=== PATIENT | female | born 1980 | race Caucasian/White ===

== ENCOUNTER 2016-12-06 18:32 | Emergency (ER) | payer SELFPAY ==
[~2016-12-06] VITALS: Ht 175.3 cm; Wt 68.0 kg
[2016-12-06 19:33] VITALS: BP 116/95
[2016-12-06 19:35] LABS: Basophils # (auto) 0 uL; Basophils % (auto) 0.3 % (0.0-2.0); Eosinophils # (auto) 0 uL; Eosinophils % (auto) 0.2 % (0.0-7.0); Hematocrit 39.1 % (36.0-46.0); Hemoglobin 12.8 g/dL (12.2-16.2); Lymphocytes # (auto) 1.5 uL; Mean Corpuscular Hemoglobin 28.3 pg (28.0-32.0); Mean Corpuscular Hgb Conc. 32.6 g/dL (32.0-36.0); Mean Corpuscular Volume 86.8 fL (80.0-100.0); Mean Platelet Volume 7.9 fL (7.4-10.4); Monocytes # (auto) 0.4 uL; Neutrophils # (auto) 6.8 uL; Neutrophils % (auto) 77.5 % (37.0-80.0); Platelet Count (auto) 305 10^3/uL (140-450); White Blood Cell 8.7 10^3/uL (4.4-10.8)
[2016-12-06 20:15] LABS: Alkaline Phosphatase 69 U/L (45-117); Anion Gap 9 (5-15); Aspartate Aminotransferase 12 U/L (15-37); BUN/Creatinine Ratio 8.5; Bilirubin, Total 0.3 mg/dL (0.2-1.0); Blood Urea Nitrogen 7 mg/dL (7-18); Calcium 9.3 mg/dL (8.5-10.1); Carbon Dioxide 28 mmol/L (21-32); Chloride 100 mmol/L (98-107); GFR African American 102 mL/min; GFR Non-African American 84 mL/min; Glucose 100 mg/dL (74-106); Magnesium 2.4 mg/dL (1.6-2.6); Potassium 4.2 mmol/L (3.5-5.1); Sodium 137 mmol/L (136-145); Total Protein 7.9 g/dL (6.4-8.2)
== END 2016-12-07 00:03 | disposition left against medical advice (07) ==
LOC: ER 18:49
DX: R55 Syncope and collapse (principal); Z53.21 Procedure and treatment not carried out due to patient leaving prior to being seen by health care provider
CPT/HCPCS: 36415; 80053; 83735; 84484; 85025

== ENCOUNTER 2018-09-18 22:37 | Emergency (ER) | payer MEDICAID, OTHER ==
[~2018-09-18] VITALS: Ht 170.2 cm; Wt 77.1 kg
[2018-09-19 00:24] LABS: Urine Bacteria MANY /hpf (None Seen); Urine Blood Negative /uL (Negative); Urine Mucus FEW (None Seen); Urine Specific Gravity 1.024 (1.001-1.035); Urine WBC 17 /hpf (0 - 5)
[2018-09-19 00:29] LABS: Alcohol, Urine < 3.0 mg/dL (0-5); Amphetamine Screen, Urine NEGATIVE (NEGATIVE); Barbiturate Scree,Urine NEGATIVE (NEGATIVE); Benzodiazephine Screen, Urine POSITIVE (NEGATIVE); Cannabinoid Screen, Urine NEGATIVE (NEGATIVE); Cocaine Screen, Urine NEGATIVE (NEGATIVE); Opiate Scree,Urine POSITIVE (NEGATIVE); Phencyclidine Screen, Urine NEGATIVE (NEGATIVE)
[2018-09-19 03:00] VITALS: BP 132/80
== END 2018-09-19 03:36 | disposition home or self-care (01) ==
LOC: EDUNIT# 22:37 → ER 22:44
DX: T40.601A Poisoning by unspecified narcotics, accidental (unintentional), initial encounter (principal); R55 Syncope and collapse; N39.0 Urinary tract infection, site not specified; G35 Multiple sclerosis; Z90.49 Acquired absence of other specified parts of digestive tract; Y92.89 Other specified places as the place of occurrence of the external cause
CPT/HCPCS: 70450; 80307; 81001

== ENCOUNTER 2020-01-13 12:05 | Inpatient (IN) | payer MEDICAID ==
[~2020-01-13] VITALS: Ht 175.3 cm; Wt 97.5 kg
[2020-01-13 12:45] LABS: Basophils # (auto) 0 10 ^3/uL (0-0.2); Basophils % (auto) 0.7 % (0.0-2.0); Eosinophils # (auto) 0 10 ^3/uL (0-0.8); Eosinophils % (auto) 0.7 % (0.0-7.0); Hematocrit 38.4 % (36.0-46.0); Hemoglobin 12.5 g/dL (12.2-16.2); Lymphocytes # (auto) 1.5 10 ^3/uL (0.4-5.4); Lymphocytes % (auto) 22.7 % (10.0-50.0); Mean Corpuscular Hemoglobin 27.8 pg (28.0-32.0); Mean Corpuscular Hgb Conc. 32.5 g/dL (32.0-36.0); Mean Corpuscular Volume 85.5 fL (80.0-100.0); Monocytes # (auto) 0.5 10 ^3/uL (0-1.3); Monocytes % (auto) 7.3 % (0.0-12.0); Neutrophils # (auto) 4.6 10 ^3/uL (1.6-8.6); Neutrophils % (auto) 68.6 % (37.0-80.0); Nucleated Red Blood Cells % 0.1 %; Platelet Count (auto) 305 10^3/uL (140-450); Red Blood Cells 4.49 10^6/uL (4.0-5.20); Red Cell Distribution Width 15.3 % (11.8-14.3); White Blood Cell 6.8 10^3/uL (4.4-10.8)
[2020-01-13 12:59] LABS: Albumin 3.9 g/dL (3.4-5.0); Anion Gap 9 (5-15); Calcium 9.1 mg/dL (8.5-10.1); Carbon Dioxide 24 mmol/L (21-32); Chloride 105 mmol/L (98-107); Glucose 98 mg/dL (74-106); Potassium 3.7 mmol/L (3.5-5.1); Sodium 138 mmol/L (136-145)
[2020-01-13 13:05] LABS: Alanine Aminotransferase 39 U/L (13-56); Alkaline Phosphatase 66 U/L (45-117); Aspartate Aminotransferase 16 U/L (15-37); BUN/Creatinine Ratio 14.3; Bilirubin, Total 0.3 mg/dL (0.2-1.0); Blood Urea Nitrogen 13 mg/dL (7-18); GFR African American 89 mL/min; GFR Non-African American 74 mL/min; Total Protein 8.2 g/dL (6.4-8.2)
[2020-01-13] MEDS ORDERED: MORPHINE SULFATE 4 MG/ML SYR/VIAL IV ONE (14:15)
[2020-01-13] MEDS ORDERED: ONDANSETRON HCL 4 MG/2 ML VIAL IV ONE (14:15)
[2020-01-13] MEDS ORDERED: MORPHINE SULF INJ 2 MG/ML SYRINGE 1ML IV PRN (18:45)
[2020-01-13] MEDS ORDERED: NITROGLYCERIN 0.4 MG SL TAB SL PRN (18:45)
[2020-01-13] MEDS ORDERED: ONDANSETRON HCL 4 MG/2 ML VIAL IV PRN (18:45)
[2020-01-13] MEDS ORDERED: SUCRALFATE 1 GM/10 ML ORAL SUSP PO ONE (18:45)
[2020-01-13] MEDS: MORPHINE SULF INJ 2 MG/ML SYRINGE 1ML IV PRN (19:55)
[2020-01-13 20:05] VITALS: BP 122/85
--- NOTE | 2020-01-13 20:05 | NUR ---
Telemetry admit from [facility] admitted to Telemetry unit, SBAR not received. Patient oriented to Ro Londono,RN primary RN, unit, room, bed, and unit policies regarding patient care and visiting hours. Patient now on continuous telemetry monitoring, tele box #2 and telemetry reading on arrival to unit is NSR. Patient AAOx4, no S/S of distress or SOB noted. Weighed by bed scale and encouraged to call if they need something. All questions and concerns addressed, patient verbalized understanding. Bed in lowest locked position, side rails up x2, call light within reach. Will continue to monitor every hour and as needed.
[2020-01-13 22:00] VITALS: BP 122/85
[2020-01-13] MEDS: PANTOPRAZOLE 40 MG/10 ML VIAL INJ IV SCH (22:00)
[2020-01-14] MEDS: MORPHINE SULF INJ 2 MG/ML SYRINGE 1ML IV PRN ×3 (04:54→18:20)
[2020-01-14 05:00] VITALS: BP 115/70
[2020-01-14 08:00] VITALS: BP 114/68
[2020-01-14] MEDS: PANTOPRAZOLE 40 MG/10 ML VIAL INJ IV SCH ×2 (10:19→21:20)
--- NOTE | 2020-01-14 10:34 | NUR ---
PAGED DR WALLACE TO NOTIFY HIM THAT CT OF HEART CAN NOT BE DONE TODAY DUE TO LACK OF STAFF BUT IT WILL BE DONE TOMORROW.
[2020-01-14 11:09] LABS: Amphetamine Screen, Urine NEGATIVE (NEGATIVE); Barbiturate Scree,Urine NEGATIVE (NEGATIVE); Benzodiazephine Screen, Urine POSITIVE (NEGATIVE); Cannabinoid Screen, Urine POSITIVE (NEGATIVE); Cocaine Screen, Urine NEGATIVE (NEGATIVE); Opiate Scree,Urine POSITIVE (NEGATIVE); Phencyclidine Screen, Urine NEGATIVE (NEGATIVE)
[2020-01-14 11:21] LABS: Urine Bacteria NONE SEEN /hpf (None Seen); Urine Blood Negative /uL (Negative); Urine Mucus FEW (None Seen); Urine Specific Gravity 1.031 (1.001-1.035); Urine WBC 410 /hpf (0 - 5); Urine WBC Clumps PRESENT /hpf (None Seen)
[2020-01-14 12:00] VITALS: BP 109/83
[2020-01-14 17:00] VITALS: BP 113/69
[2020-01-14 18:19] LABS: Hemoglobin 12.9 g/dL (12.2-16.2)
--- NOTE | 2020-01-14 19:30 | NUR ---
Opening Shift Note Assumed care of patient, awake and alert. No S/S of distress/SOB or pain. Instructed on POC and to call for assist PRN, will continue to monitor for changes Q1hr and PRN.
[2020-01-14 22:10] VITALS: BP 113/73
--- NOTE | 2020-01-14 23:25 | NUR ---
Patient reported CP of 10 and SOB. VS taken showing BP of 141/87, HR 87, O2 sat of 93% RR at 20. CP protocol followed. Nitro given SL and 2nd dose given after 5 min without any relief. O2 by nasal cannula also given at 2L. Morphine also given.
--- NOTE | 2020-01-14 23:41 | NUR ---
After rechecking patient VS were BP 120/69, HR 82, O2 98% and RR at 18. Patient stated pain is dropping to a 7 and she feels relief. Will continue to monitor.
--- NOTE | 2020-01-15 01:00 | NUR ---
Patient rounding. Patient asleep and no signs of distress or pain. Will continue to monitor.
[2020-01-15 05:00] VITALS: BP 114/69
[2020-01-15 06:01] LABS: Basophils # (auto) 0 10 ^3/uL (0-0.2); Basophils % (auto) 0.5 % (0.0-2.0); Eosinophils # (auto) 0.2 10 ^3/uL (0-0.8); Eosinophils % (auto) 2.4 % (0.0-7.0); Hemoglobin 11.6 g/dL (12.2-16.2); Lymphocytes # (auto) 2.4 10 ^3/uL (0.4-5.4); Lymphocytes % (auto) 38.1 % (10.0-50.0); Mean Corpuscular Hemoglobin 28.6 pg (28.0-32.0); Mean Corpuscular Volume 86.4 fL (80.0-100.0); Monocytes # (auto) 0.6 10 ^3/uL (0-1.3); Monocytes % (auto) 9.3 % (0.0-12.0); Neutrophils # (auto) 3.2 10 ^3/uL (1.6-8.6); Neutrophils % (auto) 49.7 % (37.0-80.0); Nucleated Red Blood Cells % 0.2 %; Platelet Count (auto) 251 10^3/uL (140-450); Red Blood Cells 4.05 10^6/uL (4.0-5.20); Red Cell Distribution Width 14.9 % (11.8-14.3); White Blood Cell 6.4 10^3/uL (4.4-10.8)
[2020-01-15 06:17] LABS: INR 1.05 (0.9-1.15); Partial Thromboplastin Time 27.1 sec (23.64-32.05)
[2020-01-15 06:26] LABS: BUN/Creatinine Ratio 14.6; Calcium 8.6 mg/dL (8.5-10.1); Potassium 3.5 mmol/L (3.5-5.1)
--- NOTE | 2020-01-15 07:10 | NUR ---
Opening Shift Note Received report on the patient. Awake lying in bed. Patient shows no signs of distress at this time. Discussed the plan of care with the patient. Bed in lowest position, side rails up x2, and the call light is within reach.
[2020-01-15 08:00] VITALS: BP 111/66
[2020-01-15] MEDS ORDERED: SODIUM CHLORIDE LOCK 10 ML ONE (08:09)
[2020-01-15] MEDS ORDERED: LIDOCAINE VISCOUS 2% 15ML UD ONE (08:09)
[2020-01-15] MEDS: MORPHINE SULF INJ 2 MG/ML SYRINGE 1ML IV PRN ×4 (08:16→23:00)
[2020-01-15] MEDS ORDERED: IOHEXOL 350 MG/ML 100ML IJ ONE (09:06)
[2020-01-15] MEDS ORDERED: METOPROLOL TARTRATE 1MG/1ML-5ML VIAL IV STA (09:06)
[2020-01-15] MEDS ORDERED: NITROGLYCERIN 0.4 MG SL TAB SL ONE (09:15)
--- NOTE | 2020-01-15 09:45 | NUR ---
Dr Mae at bedside. Patient down in CT
--- NOTE | 2020-01-15 10:13 | NUR ---
CCTA Patient brought down via wheelchair for CCTA at 0930 to radiology. Consent obtained by Kiersten Alexander tech. Patient with a #20 to right AC that is patent and flushes well. Initial vitals signs: HR 71, BP 124/80, RR 16 , O2sats 100% on 2L NC. 0935 Metoprolol given as ordered. VS post administration: HR 67 BP 106/70. Initiated 500ml NS bolus. 0950 HR 68 BP 120/78. Nitro SL 0.4mg given. 1000 Study complete. Patient transported back to room via wheelchair. Post VS HR 78 BP 136/78 RR 18 O2sats 100% on 2L NC. SBAR given to bedside RNYue.
[2020-01-15] MEDS ORDERED: SODIUM CHLORIDE 0.9% 500 ML IV ONE (10:30)
[2020-01-15] MEDS: PANTOPRAZOLE 40 MG/10 ML VIAL INJ IV SCH ×2 (10:55→21:24)
[2020-01-15 12:00] VITALS: BP 113/86
--- NOTE | 2020-01-15 13:35 | NUR ---
Patient down to OR. No signs of distress at this time.
[2020-01-15] MEDS: MIDAZOLAM HCL 5 MG/ML-1ML VIAL ONE ×3 (14:27→14:31)
[2020-01-15] MEDS: fentaNYL CITRATE 100 MCG/2 ML VL ONE ×2 (14:27→14:30)
[2020-01-15] MEDS: diphenhdrAMINE HCL 50 MG/1 ML VL ONE ×2 (14:30→14:31)
--- NOTE | 2020-01-15 16:17 | NUR ---
CCTA report is in the chart under xray
[2020-01-15 17:00] VITALS: BP 119/79
[2020-01-15] MEDS: SUCRALFATE 1 GM/10 ML ORAL SUSP PO SCH ×2 (17:25→21:24)
--- NOTE | 2020-01-15 19:08 | NUR ---
Closing Shift Note Endorsed care to RN Ramos. Patient shows no signs of distress at this time.
--- NOTE | 2020-01-15 19:30 | NUR ---
Opening Shift Note Assumed care of patient, awake and alert. No S/S of distress/SOB. Instructed on POC and to call for assist PRN, will continue to monitor for changes Q1hr and PRN.
[2020-01-15 22:00] VITALS: BP 122/79
[2020-01-16 05:00] VITALS: BP 109/67
[2020-01-16] MEDS: SUCRALFATE 1 GM/10 ML ORAL SUSP PO SCH ×2 (06:08→12:54)
[2020-01-16] MEDS: MORPHINE SULF INJ 2 MG/ML SYRINGE 1ML IV PRN ×2 (06:08→12:54)
[2020-01-16 06:35] LABS: Basophils # (auto) 0 10 ^3/uL (0-0.2); Basophils % (auto) 0.5 % (0.0-2.0); Eosinophils # (auto) 0.2 10 ^3/uL (0-0.8); Eosinophils % (auto) 2.5 % (0.0-7.0); Hematocrit 35.9 % (36.0-46.0); Hemoglobin 11.8 g/dL (12.2-16.2); Lymphocytes % (auto) 29.2 % (10.0-50.0); Mean Corpuscular Hemoglobin 28.2 pg (28.0-32.0); Mean Corpuscular Hgb Conc. 32.8 g/dL (32.0-36.0); Monocytes # (auto) 0.6 10 ^3/uL (0-1.3); Monocytes % (auto) 9.3 % (0.0-12.0); Neutrophils % (auto) 58.5 % (37.0-80.0); Nucleated Red Blood Cells % 0.1 %; Platelet Count (auto) 260 10^3/uL (140-450); Red Blood Cells 4.17 10^6/uL (4.0-5.20); Red Cell Distribution Width 15.3 % (11.8-14.3); White Blood Cell 6.8 10^3/uL (4.4-10.8)
[2020-01-16 06:57] LABS: Calcium 8.7 mg/dL (8.5-10.1); Potassium 3.7 mmol/L (3.5-5.1)
[2020-01-16 07:16] LABS: BUN/Creatinine Ratio 15.6
[2020-01-16 08:43] VITALS: BP 111/74
[2020-01-16] MEDS: PANTOPRAZOLE 40 MG/10 ML VIAL INJ IV SCH (10:06)
[2020-01-16 13:00] VITALS: BP 118/75
--- NOTE | 2020-01-16 14:43 | NUR ---
Patient AMA. Dr lebron.
== END 2020-01-16 14:53 | disposition left against medical advice (07) | DRG 241 ==
LOC: EDUNIT# 12:05 → EDBD 12:05 → ER 12:05 → TELE 12:06 → TELE-EAST 20:05
PROVIDERS: ADMIT Nurse Practitioner Acute Care; ATTEND Internal Medicine Nephrology
PROC: 0DB88ZZ Excision of Small Intestine, Via Natural or Artificial Opening Endoscopic (ICD-10-PCS; 2020-01-15)
PROC: 0DB68ZX Excision of Stomach, Via Natural or Artificial Opening Endoscopic, Diagnostic (ICD-10-PCS; 2020-01-15)
PROC: 0DB58ZZ Excision of Esophagus, Via Natural or Artificial Opening Endoscopic (ICD-10-PCS; principal; 2020-01-15 14:22)
DX: K29.70 Gastritis, unspecified, without bleeding (principal); K22.11 Ulcer of esophagus with bleeding; I24.9 Acute ischemic heart disease, unspecified; G35 Multiple sclerosis; K29.80 Duodenitis without bleeding; F41.9 Anxiety disorder, unspecified; R07.89 Other chest pain; N18.2 Chronic kidney disease, stage 2 (mild); I12.9 Hypertensive chronic kidney disease with stage 1 through stage 4 chronic kidney disease, or unspecified chronic kidney disease; K31.9 Disease of stomach and duodenum, unspecified; K44.9 Diaphragmatic hernia without obstruction or gangrene; Z90.49 Acquired absence of other specified parts of digestive tract; Z79.899 Other long term (current) drug therapy
CPT/HCPCS: 36415; 43239; 71045; 74176; 75574; 80048; 80053; 80307; 81001; 81025; 83880; 84443; 84484; 85014; 85018; 85025; 85379; 85610; 85730; 86141; 87081; 93005; C9113; G0378; J2250; J2405

== ENCOUNTER 2020-05-11 10:14 | Emergency (ER) | payer MEDICAID ==
[~2020-05-11] VITALS: Ht 175.3 cm; Wt 81.6 kg
[2020-05-11 12:35] VITALS: BP 140/86
== END 2020-05-11 13:28 | disposition home or self-care (01) ==
LOC: ER 10:14
DX: M25.511 Pain in right shoulder (principal); M54.5 Low back pain; R42 Dizziness and giddiness; M54.2 Cervicalgia; W18.2XXA Fall in (into) shower or empty bathtub, initial encounter; Y93.89 Activity, other specified; Y92.89 Other specified places as the place of occurrence of the external cause; Y99.8 Other external cause status
CPT/HCPCS: 72100; 73030

== ENCOUNTER 2024-04-01 18:06 | Emergency (ER) | payer MEDICAID ==
[~2024-04-01] VITALS: Ht 177.8 cm; Wt 83.1 kg
[2024-04-01 18:28] VITALS: BP 142/78; PULSE 112; RESP 18; TEMP 99; O2SAT 98
[2024-04-01] MEDS ORDERED: DIPH25CA66 PO (21:00)
[2024-04-01] MEDS ORDERED: PRED20TA2 PO (21:00)
[2024-04-01] MEDS ORDERED: CLIN1CAP70 PO (21:00)
[2024-04-01] MEDS: cefTRIAXone SOD 1,000 MG VL IM ONE (21:08)
[2024-04-01] MEDS: diphenhdrAMINE HCL 50 MG/1 ML VL IM ONE (21:08)
[2024-04-01] MEDS: methylPREDNISolone SOD SUCC 125 MG/2 ML VL IM ONE (21:08)
[2024-04-01] MEDS: LIDOCAINE 1% HCL (LOCAL ANESTH.) INJ 20ML MDV ID ONE (22:11)
== END 2024-04-01 21:33 | disposition home or self-care (01) ==
LOC: ER 18:06
DX: L03.112 Cellulitis of left axilla (principal); L03.111 Cellulitis of right axilla; L25.9 Unspecified contact dermatitis, unspecified cause; Z98.890 Other specified postprocedural states; Z79.899 Other long term (current) drug therapy
CPT/HCPCS: 96372; 99284; J0696; J1200; J2919; J2001